=== PATIENT | female | born 1980 | race Two or more races ===

== ENCOUNTER 2018-04-30 12:15 | Inpatient (IN) | payer SELFPAY ==
[2018-04-30] MEDS ORDERED: LIDOCAINE 1% PF 30 ML VIAL. INJ (12:45)
[2018-04-30] MEDS ORDERED: fentaNYL PF VIAL 100 MCG/2 ML VIAL IV (12:45)
[2018-04-30] MEDS ORDERED: OXYTOCIN 30 UNIT/500 ML PREMIX 500 ML IV ×3 (12:45→14:15)
[2018-04-30] MEDS ORDERED: TERBUTALINE 1 MG/ML VIAL. SQ (12:45)
[2018-04-30] MEDS ORDERED: 0.9 % SODIUM CHLORIDE 10 ML DISP.SYRIN. IV ×2 (12:45→14:15)
[2018-04-30] MEDS: IV RINGERS,LACTATED 1000ML 1,000 ML IV (13:07)
[2018-04-30] MEDS ORDERED: OXYTOCIN PREMIX 30 UNIT/500 ML BAG. IV (13:15)
[2018-04-30 14:11] LABS: BASO % 0 % (0-3); EOS % 0 % (0-3); HEMATOCRIT 38.5 % (36.0-47.0); HEMOGLOBIN 12.9 g/dL (12.0-15.5); LYMPH # 0.7 x10^3/uL (1.0-4.8); LYMPH % 6 % (24-48); MEAN CORPUSCULAR HEMOGLOBIN 29 pg (25-35); MEAN CORPUSCULAR HGB CONC 34 g/dL (31-37); MEAN CORPUSCULAR VOLUME 88 fL (79-100); MONO # 0.5 x10^3/uL (0.0-1.1); MONO % 4 % (0-9); NEUT # 10.7 x10^3uL (1.8-7.7); NEUT % 90 % (31-73); PLATELET COUNT 241 x10^3/uL (140-400); RED CELL DISTRIBUTION WIDTH 13.6 % (11.5-14.5); WHITE BLOOD COUNT 11.9 x10^3/uL (4.0-11.0)
[2018-04-30 14:13] LABS: ADD MAN DIFF? YES
[2018-04-30] MEDS ORDERED: MAG HYDROX/ALUMINUM HYD/SIMETH 30 ML ORAL.SUSP PO (14:15)
[2018-04-30] MEDS ORDERED: SIMETHICONE 80 MG TAB.CHEW PO (14:15)
[2018-04-30] MEDS ORDERED: MMR per PROTOCOL. MC (14:15)
[2018-04-30] MEDS ORDERED: ZOLPIDEM 5 MG TABLET. PO (14:15)
[2018-04-30] MEDS ORDERED: ACETAMINOPHEN 325 MG TABLET. PO (14:15)
[2018-04-30] MEDS ORDERED: BENZOCAINE 20% TOPICAL AEROSOL SPRAY 57GM CAN. TP (14:15)
[2018-04-30] MEDS ORDERED: diphenhydrAMINE HCL 25 MG CAPSULE PO (14:15)
[2018-04-30] MEDS ORDERED: MAGNESIUM HYDROXIDE 2,400 MG/30 ML ORAL.SUSP. PO (14:15)
[2018-04-30] MEDS ORDERED: HYDROCORTISONE 1% TOPICAL OINTMENT 30GM TUBE. TP (14:15)
[2018-04-30] MEDS ORDERED: PHENYLEPH/MINERAL OIL/PETROLAT RECTAL OINTMENT 28GM TUBE. RC (14:15)
[2018-04-30 16:16] LABS: % BANDS 8 % (0-9); % LYMPHS 4 % (24-48); % MONOS 2 % (0-10); % SEGS 86 % (35-66); PLT ESTIMATE ADEQUATE (ADEQUATE)
[2018-04-30] MEDS: DOCUSATE SODIUM 100 MG CAPSULE. PO (16:25)
[2018-04-30] MEDS: IBUPROFEN 800 MG TABLET. PO (16:25)
[2018-04-30] MEDS: IBUPROFEN 600 MG TABLET. PO (18:00)
[2018-04-30] MEDS: oxyCODONE/APAP 5/325 1 TAB TABLET PO (18:31)
[2018-05-01] MEDS: IBUPROFEN 800 MG TABLET. PO ×2 (02:22→15:33)
[2018-05-01 04:33] LABS: HEMATOCRIT 33.3 % (36.0-47.0)
[2018-05-01] MEDS: IBUPROFEN 600 MG TABLET. PO ×4 (06:00→18:00)
[2018-05-01] MEDS ORDERED: FERROUS SULFATE 325 MG TABLET. PO (08:00)
[2018-05-01] MEDS: oxyCODONE/APAP 5/325 1 TAB TABLET PO ×2 (15:33→19:54)
[2018-05-01] MEDS: DOCUSATE SODIUM 100 MG CAPSULE. PO (19:49)
[2018-05-02] MEDS: IBUPROFEN 600 MG TABLET. PO ×4 (06:00→18:00)
[2018-05-02] MEDS: DOCUSATE SODIUM 100 MG CAPSULE. PO ×2 (08:48→18:30)
[2018-05-02] MEDS: IBUPROFEN 800 MG TABLET. PO ×2 (08:48→18:31)
[2018-05-02] MEDS: LABETALOL HCL 200 MG TABLET PO (10:39)
== END 2018-05-02 20:05 | disposition home or self-care (01) | DRG 775 ==
LOC: 3 SO LND 12:15 → 3 NORTH 15:55
PROVIDERS: Obstetrics & Gynecology
PROC: 10E0XZZ Delivery of Products of Conception, External Approach (ICD-10-PCS; principal; 2018-04-30)
PROC: 10907ZC Drainage of Amniotic Fluid, Therapeutic from Products of Conception, Via Natural or Artificial Opening (ICD-10-PCS; 2018-04-30)
DX: O80 Encounter for full-term uncomplicated delivery (principal); Z37.0 Single live birth; Z3A.38 38 weeks gestation of pregnancy
CPT/HCPCS: 36415; 85007; 85014; 85025; 86592; 86850; 86900; 86901; J2590; J7120

== ENCOUNTER 2018-05-16 14:04 | Emergency (ER) | payer SELFPAY ==
[2018-05-16] MEDS: oxyCODONE/APAP 5/325 1 TAB TABLET PO (15:57)
[2018-05-16] MEDS: HYDROCORTISONE ACETATE 25 MG SUPP.RECT PR (15:59)
== END 2018-05-16 16:10 | disposition home or self-care (01) ==
LOC: ER 16:10
DX: K64.4 Residual hemorrhoidal skin tags (principal); I10 Essential (primary) hypertension
CPT/HCPCS: 99283